=== PATIENT | male | born 1980 | race Caucasian/White ===

== ENCOUNTER 2018-05-28 02:11 | Emergency (ER) | payer SELFPAY ==
[2018-05-28 02:35] VITALS: TEMP 98.4
--- NOTE | 2018-05-28 02:44 | ED ---
Seizure HPI - General Chief Complaint: Seizure Stated Complaint: Poss seizure Time Seen by Provider: 05/28/18 02:17 Source: patient Limitations: altered mental status - History of Present Illness Initial Comments: Patient is a 38-year-old man coming by ambulance to be evaluated for suspected seizure. The patient's was sleeping, and his states she was awakened by finding him shaking. He fell out of the bed. She states that it appeared he may have stopped breathing and she performed chest compressions. The patient then did resume breathing. He also had episode of vomiting. There was a period of confusion and decreased responsiveness. The patient then became more alert and has been able answer simple questions. When I see the patient he denies any injury or pains. He does have some residual nausea. MD Complaint: possible seizure -: minutes(s) Description of Episode: tonic-clonic movement, post-event confusion -: minutes(s) Witnessed: yes - by bystander Trauma: No () Seizure History: none Place: home Possible Precipitating Event: none Associated Symptoms: other (Vomiting) - Related Data Allergies Allergy/AdvReac Type Severity Reaction Status Date / Time No Known Allergies Allergy Verified 05/28/18 02:47 Review of Systems ROS Statement: Those systems with pertinent positive or pertinent negative responses have been documented in the HPI. ROS Other: All systems not noted in ROS Statement are negative. Constitutional: Denies: fever, weakness Eyes: Denies: vision change Respiratory: Denies: cough, dyspnea Cardiovascular: Denies: chest pain, palpitations, edema Gastrointestinal: Reports: vomiting, hematemesis (Coffee-ground material). Denies: abdominal pain, diarrhea, melena, hematochezia Genitourinary: Denies: dysuria Musculoskeletal: Denies: back pain Skin: Denies: rash Neurological: Denies: headache, weakness, numbness Past Medical History Past Medical History: No Reported History History of Any Multi-Drug Resistant Organisms: None Reported Additional Past Surgical History / Comment(s): denies Past Psychological History: No Psychological Hx Reported Smoking Status: Never smoker Past Alcohol Use History: None Reported Past Drug Use History: None Reported General Exam Limitations: altered mental status General appearance: alert, in no apparent distress Head exam: Present: atraumatic, normocephalic Eye exam: Present: normal appearance. Absent: scleral icterus, conjunctival injection ENT exam: Present: normal oropharynx Neck exam: Present: normal inspection Respiratory exam: Present: normal lung sounds bilaterally. Absent: respiratory distress, wheezes, rales, rhonchi, stridor Cardiovascular Exam: Present: regular rate, normal rhythm, normal heart sounds. Absent: systolic murmur, diastolic murmur, rubs, gallop GI/Abdominal exam: Present: soft. Absent: distended, tenderness, guarding, rebound, mass Extremities exam: Present: normal inspection, normal capillary refill. Absent: pedal edema, calf tenderness Back exam: Present: normal inspection. Absent: CVA tenderness (R), CVA tenderness (L) Neurological exam: Present: alert, oriented X3, CN II-XII intact. Absent: motor sensory deficit Psychiatric exam: Present: normal affect, normal mood Skin exam: Present: warm, dry, intact, normal color. Absent: rash Course Vital Signs 05/28/18 05/28/18 05/28/18 02:20 02:38 03:24 Temperature 98.4 F Pulse Rate 56 L 51 L 51 L Respiratory 16 15 Rate Blood Pressure 115/68 121/76 111/72 O2 Sat by Pulse 100 100 100 Oximetry 05/28/18 05/28/18 05/28/18 04:00 05:00 05:54 Temperature Pulse Rate 52 L 61 Respiratory 15 16 16 Rate Blood Pressure 114/67 114/67 117/72 O2 Sat by Pulse 100 100 100 Oximetry 05/28/18 06:57 Temperature Pulse Rate 70 Respiratory 16 Rate Blood Pressure 113/71 O2 Sat by Pulse 100 Oximetry Medical Decision Making - Lab Data Result diagrams: 05/28/18 02:40 05/28/18 02:40 Lab Results 05/28/18 05/28/18 05/28/18 Range/Units 02:33 02:40 02:40 WBC 5.4 (3.8-10.6) k/uL RBC 4.17 L (4.30-5.90) m/uL Hgb 14.0 (13.0-17.5) gm/dL Hct 42.5 (39.0-53.0) % MCV 101.8 H (80.0-100.0) fL MCH 33.6 (25.0-35.0) pg MCHC 32.9 (31.0-37.0) g/dL RDW 13.1 (11.5-15.5) % Plt Count 205 (150-450) k/uL Neutrophils % 47 % Lymphocytes % 43 % Monocytes % 6 % Eosinophils % 2 % Basophils % 0 % Neutrophils # 2.5 (1.3-7.7) k/uL Lymphocytes # 2.3 (1.0-4.8) k/uL Monocytes # 0.3 (0-1.0) k/uL Eosinophils # 0.1 (0-0.7) k/uL Basophils # 0.0 (0-0.2) k/uL Macrocytosis Slight Sodium 139 (137-145) mmol/L Potassium 4.1 (3.5-5.1) mmol/L Chloride 106 (98-107) mmol/L Carbon Dioxide 23 (22-30) mmol/L Anion Gap 10 mmol/L BUN 20 (9-20) mg/dL Creatinine 0.86 (0.66-1.25) mg/dL Est GFR (CKD-EPI)AfAm >90 (>60 ml/min/1.73 sqM) Est GFR (CKD-EPI)NonAf >90 (>60 ml/min/1.73 sqM) Glucose 153 H (74-99) mg/dL POC Glucose (mg/dL) 155 H (75-99) mg/dL POC Glu Personal Investment Adviser ID Franki Sweet Calcium 9.1 (8.4-10.2) mg/dL Total Bilirubin 0.5 (0.2-1.3) mg/dL AST 37 (17-59) U/L ALT 35 (21-72) U/L Alkaline Phosphatase 38 (38-126) U/L Total Protein 7.0 (6.3-8.2) g/dL Albumin 4.2 (3.5-5.0) g/dL Salicylates <1.0 mg/dL - EKG Data -: EKG Interpreted by [facility] EKG shows normal: sinus rhythm, axis (Normal), intervals (Normal), QRS complexes ((Posterior fascicular block), ST-T waves (Normal) Rate: bradycardia Disposition Clinical Impression: New onset seizure Disposition: HOME SELF-CARE Condition: Good Instructions: New-Onset Seizure in Adults (ED) Is patient prescribed a controlled substance at d/c from ED?: No Referrals: Gary Yuen MD [STAFF PHYSICIAN] - 1-2 days
[2018-05-28 02:45] LABS: Glucose,Whole Blood 155 mg/dL (75-99)
[2018-05-28 03:14] LABS: Basophils % (A) 0 %; Eosinophils # (A) 0.1 k/uL (0-0.7); Eosinophils % (A) 2 %; HCT 42.5 % (39.0-53.0); Lymphocytes # (A) 2.3 k/uL (1.0-4.8); Lymphocytes % (A) 43 %; MCH 33.6 pg (25.0-35.0); MCHC 32.9 g/dL (31.0-37.0); MCV 101.8 fL (80.0-100.0); Macrocytosis Slight; Mean Platelet Volume 6.7; Monocytes # (A) 0.3 k/uL (0-1.0); Monocytes % (A) 6 %; Neutrophils # (A) 2.5 k/uL (1.3-7.7); Neutrophils % (A) 47 %; Platelet Count 205 k/uL (150-450); RBC 4.17 m/uL (4.30-5.90); RDW 13.1 % (11.5-15.5); WBC 5.4 k/uL (3.8-10.6)
[2018-05-28] MEDS ORDERED: ONDANSETRON 4 MG/2 ML VIAL IVP STA ×2 (03:22→03:23)
[2018-05-28 03:26] LABS: ALT 35 U/L (21-72); AST 37 U/L (17-59); Albumin 4.2 g/dL (3.5-5.0); Alkaline Phosphatase 38 U/L (38-126); Anion Gap 10 mmol/L; Blood Urea Nitrogen 20 mg/dL (9-20); Calcium 9.1 mg/dL (8.4-10.2); Carbon Dioxide 23 mmol/L (22-30); Chloride 106 mmol/L (98-107); Glucose 153 mg/dL (74-99); Potassium 4.1 mmol/L (3.5-5.1); Salicylate <1.0 mg/dL; Sodium 139 mmol/L (137-145); Total Bilirubin 0.5 mg/dL (0.2-1.3)
--- NOTE | 2018-05-28 05:40 | CT ---
EXAM: CT Head Without Intravenous Contrast. CLINICAL HISTORY: Reason: seizure TECHNIQUE: Axial computed tomography images of the head/brain without intravenous contrast. CTDI is 57.4 mGy and DLP is 961 mGy-cm. This CT exam was performed using one or more of the following dose reduction techniques: automated exposure control, adjustment of the mA and/or kV according to patient size, and/or use of iterative reconstruction technique. COMPARISON: No relevant prior studies available. FINDINGS: Brain: There is no evidence of acute intracranial hemorrhage or mass effect. No midline shift. Encephalomalacia along the anterior and parasagittal frontal lobes likely associated with prior traumatic injury. Ventricles: No ventriculomegaly. Bones: No acute fracture. Sinuses: Unremarkable as visualized. No acute sinusitis. Mastoid air cells: Unremarkable as visualized. No mastoid effusion. IMPRESSION: No acute intracranial abnormality. Probable post-traumatic changes within bilateral frontal lobes.
[2018-05-28 05:54] VITALS: RESP 16
[2018-05-28 06:58] VITALS: BP 113/71; PULSE 70
== END 2018-05-28 07:19 | disposition home or self-care (01) ==
LOC: EC 02:11
DX: R56.9 Unspecified convulsions (principal); R11.10 Vomiting, unspecified
CPT/HCPCS: 36415; 70450; 80053; 83520; 85025; 96374; 99285

== ENCOUNTER → 2018-07-06 | Outpatient (CLI) | payer OTHER ==
--- NOTE | 2018-07-06 13:16 | MR ---
EXAMINATION TYPE: MR brain wo con DATE OF EXAM: 07/06/2018 COMPARISON: NONE HISTORY: Unspecified convulsions T1-weighted sagittal, T2, FLAIR, and diffusion axial, and T2 coronal coronal views of the brain are s ubmitted. There is no evidence of acute ischemia. The ventricles, basal cisterns, and sulci overlying the conv exities are consistent with the patient's age. There is no mass effect. Craniocervical junction maintained. Sella turcica has a normal appearance. No cerebellopontine angle mass. There is abnormal signal in the anterior sagittal frontal lobe bilat erally which is nonspecific but most typical of an area of encephalomalacia. Additional area of abnor mal signal with cortical atrophy involving the superior anterior right frontal lobe. There is a nasal septal deviation changes of chronic sinusitis noted. There is a small amount of flui d surrounding the optic nerves bilaterally. IMPRESSION: 1. No acute intracranial process. Abnormal signal involving the frontal lobes most suggestive of ence phalomalacia likely associated with history of prior trauma. 2. Nonspecific finding of the trace amount of fluid surrounding the optic nerves bilaterally. This ca n sometimes be associated with benign intracranial increased pressure. Correlate clinically.
== END | disposition home or self-care (01) ==
LOC: RADMRIMAIN 11:44
PROVIDERS: ATTEND Psychiatry & Neurology Neurology
DX: R93.0 Abnormal findings on diagnostic imaging of skull and head, not elsewhere classified (principal); R56.9 Unspecified convulsions; Z87.828 Personal history of other (healed) physical injury and trauma
CPT/HCPCS: 70551

== ENCOUNTER → 2018-07-14 | Outpatient (CLI) | payer OTHER ==
--- NOTE | 2018-07-22 20:30 | EEG ---
ELECTROENCEPHALOGRAM REPORT DATE OF EE07/14/2018 ELECTROENCEPHALOGRAPHIC EXAMINATION REPORT: INDICATION FOR EXAMINATION: This patient is a 38-year-old male being evaluated for new-onset seizure in May 2018. Patient had a short seizure of 3 minutes followed by postictal state. AGE: [age]. EEG FINDINGS: A routine 21-channel awake digital EEG recording was accomplished utilizing the 10-20 international system with bipolar and referential montages. The background activity in the most alert resting state consists of a low to medium amplitude, fairly well developed well sustained 7-8 Hz activity over the posterior head regions. This posterior rhythm attenuates to eye opening. There is a small amount of low amplitude 18-20 Hz beta activity seen maximally over the anterior head regions. Muscle and movement artifact was observed on a few occasions during the tracing. Hyperventilation failed to produce any additional information to the tracing. No further activation was seen. Photic stimulation at flash frequencies of 2-30 Hz produced a good symmetrical occipital driving response. No epileptiform discharges were seen. IMPRESSION: This EEG is within normal limits for the patient's age. The EEG failed to reveal any focal, lateralized, or epileptiform abnormalities. Clinical correlation is recommended. MMODL / IJN: [id number] /
== END | disposition home or self-care (01) ==
LOC: NEUROMAIN 12:58
PROVIDERS: ATTEND Psychiatry & Neurology Neurology
DX: G40.89 Other seizures (principal)
CPT/HCPCS: 95816

== ENCOUNTER → 2018-08-28 | Outpatient (CLI) | payer OTHER ==
--- NOTE | 2018-08-30 22:12 | MR ---
EXAMINATION TYPE: MR orbits wo/w con DATE OF EXAM: 08/28/2018 COMPARISON: MRI brain July 06, 2018. HISTORY: Fluid near optic nerve per patient. 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 TECHNIQUE: Multiplanar, multisequence images of the brain and brainstem is performed without and with IV contras t, utilizing 7.5 mL intravenous Gadavist . FINDINGS: The globes are intact bilaterally. Rectus muscles are symmetric and felt within normal limi ts. No suspicious intraconal mass is identified. No suspicious enhancement of optic nerve is seen. Sy mmetric small amount of fluid in bilateral optic nerve sheaths is unchanged from prior MRI. No suspic ious enhancement is overall identified. Optic chiasm is not effaced. The pituitary stalk shows normal enhancement in the midline. No suspicio us enlargement of pituitary gland is noted. Craniocervical junction remains within normal limits. Vis ualized paranasal sinuses are clear. IMPRESSION: No suspicious new finding identified to account for patient's symptoms.
== END ==
LOC: RADMRIMAIN 18:57
PROVIDERS: ATTEND Ophthalmology
DX: H35.711 Central serous chorioretinopathy, right eye (principal)
CPT/HCPCS: 70543; A9585